=== PATIENT | male | born 1980 | race African-American/Black ===

== ENCOUNTER 2016-06-16 15:11 | Emergency (ER) | payer SELFPAY ==
[~2016-06-16] VITALS: Ht 190.5 cm; Wt 113.4 kg
[~2016-06-16 15:11] MED LIST: DICL75 PO; Z.0.NO CURRENT MEDS
[2016-06-16 15:22] VITALS: BP 128/78; PULSE 82; RESP 17; TEMP 98.9; O2SAT 97
--- NOTE | 2016-06-16 16:14 | PD ---
HPI . left lower back pain x 2 days Chief Complaint: Back/ Neck Pain or Injury Time Seen by Provider: 16:13 Travel History International Travel<30 days: No Contact w/Intl Traveler<30days: No Traveled to known affect area: No History of Present Illness HPI 36-year-old male with no significant past medical history here with complaints of left lower side back pain and muscle spasms. Patient says he was lifting weights on Friday and he started to have muscle spasms. He is now having difficulty in relating that the pain is intense. He points to the left lumbar area in the paraspinal musculature. He tells me the pain is deep within and worse with movement. He denies any spinal process tenderness. He denies any other symptoms. He has no bowel or bladder dysfunction. He denies any saddle anesthesia. PFS Past Medical History Medical History: Denies Significant Hx Immunizations Current: Yes Influenza Vaccination: No Social History Alcohol Use: No Tobacco Use: No Substance Use: No Allergies-Medications (Allergen,Severity, Reaction): Coded Allergies: No Known Allergies (Verified , 06/16/16) Reported Meds & Prescriptions Reported Meds & Active Scripts Active Flexeril (Cyclobenzaprine HCl) 5 Mg Tab 5 Mg PO TID Review of Systems General / Constitutional: No: Fever Eyes: No: Visual changes HENT: No: Headaches Cardiovascular: No: Chest Pain or Discomfort Respiratory: No: Shortness of Breath Gastrointestinal: No: Abdominal Pain Genitourinary: No: Dysuria Musculoskeletal: Positive: Myalgias, No: Pain Skin: No Rash Neurologic: No: Weakness Psychiatric: No: Depression Endocrine: No: Polydipsia Hematologic/Lymphatic: No: Easy Bruising Physical Exam Narrative GENERAL: AAO x 3, no acute distress, Well-nourished, well-developed patient. SKIN: Warm and dry. No visible rashes or bruising. HEAD: Normocephalic and atraumatic. EYES: No scleral icterus. No injection or drainage. ENT: No nasal drainage noted. Mucous membranes pink. Airway patent. NECK: Supple, trachea midline. No JVD. CARDIOVASCULAR: Regular rate and rhythm without murmurs, gallops, or rubs. RESPIRATORY: Breath sounds equal bilaterally. No accessory muscle use. No rhonchi or rales. GASTROINTESTINAL: Abdomen soft, non-tender, nondistended. EXTREMITIES: No cyanosis or edema. BACK: Nontender without obvious deformity. No CVA tenderness. pain is not reproducible on exam, but present with movement. Patient unable to lay down in bed with pain.He is ambulatory with crutches reducing load on left leg. PSYCH: AAO x 3, normal affect. Data Data Last Documented VS Vital Signs Date Time Temp Pulse Resp B/P Pulse Ox O2 Delivery O2 Flow Rate FiO2 06/16/16 15:22 98.9 82 17 128/78 97 Room Air MDM Medical Decision Making Medical Screen Exam Complete: Yes Emergency Medical Condition: Yes Medical Record Reviewed: Yes Differential Diagnosis muscle spasm, sciatica, less likely spinal fracture Narrative Course 36-year-old male with no significant past medical history here with complaints of left lower side back pain and muscle spasms. Patient says he was lifting weights on Friday and he started to have muscle spasms. He is now having difficulty in relating that the pain is intense. He points to the left lumbar area in the paraspinal musculature. He tells me the pain is deep within and worse with movement. He denies any spinal process tenderness. He denies any other symptoms. He has no bowel or bladder dysfunction. He denies any saddle anesthesia. Patient seen and examined. He appears to have muscle spasm and sciatica. My index of suspicion for any type of spinal fracture is very low. I do not suspect any cauda equina. With that being said, I discussed muscle relaxers with the patient. He has tried these in the past with relief. I'll go ahead and give him a short course of muscle relaxers. I advised the side effects. I recommend rest for the next week to 2 weeks. Follow-up with primary care provider. Patient verbalized understanding of instructions, questions were answered, and thanked me for their care. I advised them if their condition worsens, please return to the nearest emergency room for further care. Diagnosis Primary Impression: Muscle spasm Additional Impression: Sciatica Qualified Code: M54.32 - Sciatica of left side Patient Instructions: General Instructions, Muscle Spasm (ED), Sciatica (ED) Additional Instructions: Please return to emergency department if your symptoms return or worsen. Follow up with your primary care provider. Take medications as prescribed. You can try topical muscle rub such as BenGay to the affected area. I recommend rest and no exercise such as lifting weights for the next 1-2 weeks. Muscle relaxers can cause drowsiness. Do not drive, swim or operate heavy machinery while using these medications. Med/Other Pt SpecificInfo: Prescription(s) given Scripts Cyclobenzaprine (Flexeril)5 Mg Tab5 Mg PO TID #21 TAB Ref 0 Prov:Raiza Greco MD 06/16/16 Disposition: 01 DISCHARGE HOME Condition: Stable Alyssa Mccabe Jun 16, 2016 16:14
[2016-06-16] MEDS ORDERED: CYCL5TAB PO (16:20)
== END 2016-06-16 16:35 | disposition home or self-care (01) ==
LOC: PHED 15:11 → PHEFT 16:35
DX: M62.830 Muscle spasm of back (principal); M54.32 Sciatica, left side; X50.0XXA Overexertion from strenuous movement or load, initial encounter; Y93.B9 Activity, other involving muscle strengthening exercises
CPT/HCPCS: 99283